=== PATIENT | male | born 1975 | race Caucasian/White ===

== ENCOUNTER 2023-10-13 12:54 | Inpatient (IN) | payer OTHER, SELFPAY ==
[2023-10-13] VITALS (17 sets, daily range): BP systolic 100–173; BP diastolic 47–117; PULSE 73–121; BMI 26.7
[2023-10-13 10:20] LABS: % Basophils 0.3 % (0-2); % Eosinophils 0.2 % (0-6); % Immature Granulocytes 0.7 % (0-0.5); % Lymphocytes 7.7 % (20.5-51.1); % Monocytes 8.1 % (1.7-9.3); Absolute Immature Granulocytes 0.1 10^3/uL (0-0.05); Absolute Neutrophils 10.6 10^3/uL (1.4-6.5); Hematocrit 34.1 % (39.0-52.0); Mean Corp Hgb Conc. 35.2 g/dL (33.0-37.0); Mean Corpuscular Volume 88.1 fL (80.0-94.0); Mean Platelet Volume 11.1 fL (7.4-10.4); Nucleated Red Blood Cells % 0 % (-); Platelet Count 183 10^3/uL (130-400); Red Blood Cell Count 3.87 10^6/uL (4.70-6.10); Red Cell Dist. Width 12.3 % (11.5-14.5); White Blood Cell Count 12.8 10^3/uL (4.8-10.8)
[2023-10-13 10:31] LABS: APTT 24.1 Sec (23.4-35.0)
--- NOTE | 2023-10-13 10:39 | ED.GENMED ---
History of Present Illness
General
Chief Complaint: Rectal Bleeding
Source: patient
Exam Limitations: none
Time Seen by Provider: 10/13/23 10:12
Nursing documentation reviewed up to this point in time: agreed with
History of Present Illness
History of Present Illness:
The patient presents to ED secondary to 8 episodes of bloody bowel movements since last night, along with dizziness when ambulating this morning. Denies fever or chills. Denies abdominal pain. Denies nausea or vomiting. Denies recent change in
medications or diet. Denies recent illness. Denies sick contact. Denies previous history of similar symptoms. Patient has never received colonoscopy. There is no family history of colon problems.
Review of Systems
Review of Systems
Allergies reviewed?: Yes
All Other Systems: ROS reviewed and negative except as documented in HPI and ROS
Constitutional: Reports no symptoms; Denies fever
Cardiac: Reports no symptoms
ABD/GI: Denies abdominal pain, vomiting, diarrhea or bloody stools
Musculoskeletal: Reports no symptoms
Skin: Reports no symptoms
Neurological: Reports dizzy
Phy Exam
Physical Exam
Physical Exam:
Physical Exam
General: mild distress, acutely ill. afebrile. pale appearing
Head: nc/at. eomi
Neck: supple. normal range of motion.
Heart: s1/s2 regular rate and rhythm, no murmur. equal radial pulses.
Lungs: no acute respiratory distress. clear bilaterally
Abdomen: normal bowel sounds. not tender. no distention. rectal exam: (DELON De Anda, at bedside) bright red blood, grossly heme positive
Neuro: alert and oriented. no focal neurological deficits
Skin: no rash
Psychiatric: well kept. interactive and cooperative
Extremities: no edema. no calf tenderness.
Course
Orders/Labs/Results
Orders:
Orders
10/13/23 Lunch
NPO
Allow oral meds: Yes
Allow clear liquids: Sips of Clears
NPO with Ice Chips: Yes
10/13/23 10:05
Cardiac Monitoring- Treatment ONCE
IV Insert/Care/Rem.- Treatment PRN
10/13/23 10:14
Type+Screen Urgent
Complete Blood Count/With Diff Urgent
Comprehensive Metabolic Panel Urgent
PTT Urgent
Prothrombin Time Urgent
10/13/23 10:22
CT Angio Abd/Pelvis w/wo IV [CT Abd/pelvis Angio W/wo Iv] Urgent
Comment:
Reason For Exam: GI Bleed
10/13/23 10:52
IV Insert/Care/Rem.- Treatment PRN
Pantoprazole 80 mg/100 ml Nss [Protonix] 80 mg in 100 ml IV NOW
Pantoprazole [Protonix IV] 80 mg IV NOW STA
10/13/23 11:53
ABO2 Urgent
BBK Wristband Number:
Associate notified that ABO2 has been ordered: [id number]
Date: 10/13/23
Time: 10:22
Lounge Car Attendant ID: [id number]
10/13/23 11:56
Admit/Transfer Patient As Directed
Co-Sign Provider:
Level of Care: Inpatient admission
Assign to:: Telemetry
Physician / Group: roderick soriano
Diagnosis: GIB
Reason for Telemetry: Other
Other Reason for Telemetry: GIB
Date to Stop Telemetry: 10/15/23
Time to Stop Telemetry: 11:00
Reason for Hospitalization: GIB
Expected length of stay greater than two midnights?: Yes
ELOS- Estimated Length of Stay in days: 3
I certify the patient meets the requirements for IP care: Yes
PRN Pain Medication Management As Directed
May give lesser potent ordered pain med per pt: Yes
preference::
Protocol:: Medication orders for pain may be administered in a
manner that supports deferring to patient preference
when the pt is:
- Requesting an ordered lesser potent pain medication.
Least to most potent pain medications are defined
as: acetaminophen < NSAID < tramadol < opioids
(morphine, oxycodone, hydromorphone).
- Requesting a lesser dose of the same medication IF
ORDERED.
- Requesting a less intrusive route of administration
if both routes are prescribed by the provider (PO <
IV).
10/13/23 11:57
Code Status As Directed
Resuscitation Status: Full Code
10/13/23 13:59
0.9% Sodium Chloride 1000 ml [Nss] 1,000 ml IV 100 mls/hr
Acetaminophen [Tylenol/Feverall] 650 mg RECTAL Q4HPRN PRN
Acetaminophen [Tylenol] 650 mg PO Q6HPRN PRN
Ondansetron Injectable [Zofran] 4 mg IV Q6HPRN PRN
10/13/23 13:59
ColoRectal Surgery Consult Routine
Consulting Provider: Jim Nuno
Was physician already notified: Yes
GASTROINTESTINAL CONSULT Routine
Consulting Provider: Tamiko Webster
Was physician already notified: Yes
Activity As Directed
Activity Level: Ambulate
INT (Intravenous Needle Therapy) As Directed
Comment: Place 2 IV catheters of the largest bore possible until stable
Orthostatic Vital Signs As Directed
Orthostatic VS Frequency: Now
Comment: then every four hours for twenty-four hours
Pneumatic Compression Sleeves As Directed
Type: Knee high
Vital Signs As Directed
Frequency: Per unit guidelines
DX Deep Vein Thrombosis Video Routine
10/13/23 20:00
Pantoprazole [Protonix IV] 40 mg IV BID
10/14/23 07:43
Basic Metabolic Panel IN AM
Complete Blood Count/No Diff IN AM
10/14/23 08:00
Multivitamin [Theragran] 1 tablet PO DAILY
10/15/23 06:00
Basic Metabolic Panel IN AM
Complete Blood Count/No Diff IN AM
10/15/23 11:00
DC Protocol for Telemetry ONCE
10/16/23 06:00
Basic Metabolic Panel IN AM
Complete Blood Count/No Diff IN AM
10/17/23 06:00
Basic Metabolic Panel IN AM
Complete Blood Count/No Diff IN AM
10/18/23 06:00
Basic Metabolic Panel IN AM
Complete Blood Count/No Diff IN AM
Abnormal Lab Results
10/13/23
10:14
WBC 12.8 H 10^3/uL
(4.8-10.8)
RBC 3.87 L 10^6/uL
(4.70-6.10)
Hgb 12.0 L g/dL
(13.0-18.0)
Hct 34.1 L %
(39.0-52.0)
MPV 11.1 H fL
(7.4-10.4)
Abs Immat Gran (auto) 0.1 H 10^3/uL
(0-0.05)
Absolute Neuts (auto) 10.6 H 10^3/uL
(1.4-6.5)
Absolute Lymphs (auto) 1.0 L 10^3/uL
(1.2-3.4)
Absolute Monos (auto) 1.0 H 10^3/uL
(0.1-0.6)
Immature Gran % 0.7 H %
(0-0.5)
Neutrophils % 83.0 H %
(42.2-75.2)
Lymphocytes % 7.7 L %
(20.5-51.1)
Glucose 133 H mg/dl
(70-99)
Calcium 8.3 L mg/dl
(8.4-10.2)
ALT 100 H U/L
(0-50)
Total Protein 5.8 L g/dl
(6.3-8.2)
10/13/23 10:14
10/13/23 10:14
Vital Signs
Initial and Last Documented VS:
Initial Vital Signs
BP
155/106
10/13/23 09:54
Last Documented Vital Signs
Temp Pulse Resp BP Pulse Ox
98.0 F 74 18 149/97 98
10/14/23 07:00 10/14/23 07:00 10/14/23 07:00 10/14/23 07:00 10/14/23 07:00
MDM/Problems Addressed
MDM/Problems Addressed:
H/H stable. GI notified via [facility].
Blood transfusion consent on the chart. Protonix gtt started.
CTA report (active bleed) discussed with (colorectal surgery) - awaiting evaluation.
Pt remains hemodynamically stable during observation in ED.
Critical care statement: A total of 40 minutes of critical care time was provided for this patient. This includes management of unstable vital signs, evaluation of the patient at bedside, reviewing the patient's pertinent medical records, discussion
with consultants, review of old EKGs and review of pertinent medical records. This time with separate from time utilized to perform the aforementioned documented procedures
*Critical Care Note
Total Time (30-74mins, 75-104mins- exclusive of procedures): 40 min
ED Attending Note
-
Portions of this chart may have been created with voice recognition software.� Occasional wrong word or��sound alike� substitutions may have occurred due to the inherent limitations of voice recognition software.
Discharge Plan
Departure
Patient Disposition: Admit
Date of Disposition: 10/13/23
Time of Disposition: 10:59
Admit to: IMU
Presentation/result/management discussed w/ accepting MD/DO: Hospitalist
Discharge Problem:
Bright red rectal bleeding
Interventions
Interventions:
*Risk Screen - Suicide Last Done: 10/13/23 10:00
*General Assessment Last Done: 10/13/23 10:00
*Neglect/Abuse Screening Last Done: 10/13/23 10:00
*ED COVID-19 Vaccine History Last Done: 10/13/23 10:05
*Nursing Disposition Last Done: 10/13/23 13:27
AH-Fbhoco-Gcmqrldtcz Assessment Last Done: 10/13/23 10:04
ED- Cardiac Assessment Last Done: 10/13/23 10:04
ED- Pulmonary Assessment Last Done: 10/13/23 10:04
Discharge Date and Time
Discharge Date/Time: 10/13/23 13:38
[2023-10-13 10:44] LABS: ALT (SGPT) 100 U/L (0-50); AST (SGOT) 46 U/L (17-59); Albumin 3.5 g/dl (3.5-5.0); Alkaline Phosphatase 56 U/L (38-126); Blood Urea Nitrogen 14 mg/dl (9-20); Calcium 8.3 mg/dl (8.4-10.2); Carbon Dioxide 23 mmol/L (22-30); Chloride 106 mmol/L (98-107); Glucose 133 mg/dl (70-99); Potassium 4.1 mmol/L (3.5-5.1); Sodium 140 mmol/L (135-145); Total Bilirubin 0.8 mg/dl (0.2-1.3); Total Protein 5.8 g/dl (6.3-8.2); eGFR > 60.00
--- NOTE | 2023-10-13 11:13 | CON.GI ---
Addendum entered and electronically signed by MANAN Belcher 10/13/23 16:24:
Pt currently for procedure with colorectal surgery. Will sign off. Call if we can be of further assistance
Addendum entered and electronically signed by MANAN Belcher 10/13/23 12:11:
Pt with + CTA in rectal bleeding. May be hemorrhoidal vs other. For colorectal evaluation.
Original Note:
Consultation
-
Date/Time Consultation Requested: 10/13/23 1100
Date/Time Consultation Performed: 10/13/23 1115
Requesting Provider: Mac Clarke MD
Performing Provider: MANAN Guy, Tamiko Webster MD
Reason for Consultation: rectal bleeding
Medical History
Chief Complaint / HPI
Chief Complaint: bright red blood per rectum
History of Present Illness:
Pt is a 47yo healthy male with onset of rectal bleeding at 10 PM 10/11. In reviewing with patient he was noted with about 8 episode or red blood since that time with about 1/2 cup with each episode. No hx prior GI bleeding. No hx colonoscopy in
past.
Pt otherwise admits to dizziness with symptoms but denies dysphagia, GERD, nausea, vomiting, abdominal pain, diarrhea, constipation, blood or black in stools. On admission hbg 12, WBC 12.8.
Social History
Tobacco: Non-Smoker
Alcohol: Occasional
Drug: None
Living: Alone
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
Family History
Family History: Other (no family hx colon ca or polyps)
Allergies / Home Medications
Allergy/AdvReac Type Severity Reaction Status Date / Time
No Known Allergies Allergy Unverified 10/13/23 10:00
�Medication �Instructions �Recorded
therapeutic multivitamin 1 tab PO DAILY Supplement 10/13/23
Review of Systems
-
History Source: Patient
Constitutional: Reports No Symptoms
EENT: Reports No Symptoms
Respiratory: Reports No Symptoms
Cardiac: Reports No Symptoms
Abdomen/GI: Reports Bloody Stools
: Reports No Symptoms
Musculoskeletal: Reports No Symptoms
Skin: Reports No Symptoms
Neurological: Reports Dizzy
Endocrine: Reports No Symptoms
Hematologic/Lymphatic: Reports Bleeding
Vital Signs
Temp Pulse Resp BP Pulse Ox
98.8 F 78 15 149/99 97
10/13/23 10:00 10/13/23 10:30 10/13/23 10:30 10/13/23 10:00 10/13/23 10:30
Physical Exam
Exam
General: Well Developed, Well Nourished and No Apparent Distress
HEENT: Normocephalic and Anicteric
Respiratory: Clear
Cardiac: Regular Rhythm
GI: Soft
Musculoskeletal: No Clubbing and No Cyanosis
Skin: Warm and Dry
Neuro: Awake, Alert and AO x 3
Psych: Calm
Results
WBC 12.8 10^3/uL (4.8-10.8) H 10/13/23 10:14
Hgb 12.0 g/dL (13.0-18.0) L 10/13/23 10:14
Hct 34.1 % (39.0-52.0) L 10/13/23 10:14
MCV 88.1 fL (80.0-94.0) 10/13/23 10:14
Plt Count 183 10^3/uL (130-400) 10/13/23 10:14
Absolute Neuts (auto) 10.6 10^3/uL (1.4-6.5) H 10/13/23 10:14
PT 14.0 Sec (11.4-14.6) 10/13/23 10:14
INR 1.10 10/13/23 10:14
APTT 24.1 Sec (23.4-35.0) 10/13/23 10:14
Sodium 140 mmol/L (135-145) 08/26/24 10:14
Potassium 4.1 mmol/L (3.5-5.1) 10/13/23 10:14
Chloride 106 mmol/L (98-107) 10/13/23 10:14
Carbon Dioxide 23 mmol/L (22-30) 10/13/23 10:14
BUN 14 mg/dl (9-20) 10/13/23 10:14
Creatinine 0.7 mg/dL (0.7-1.3) 10/13/23 10:14
Calcium 8.3 mg/dl (8.4-10.2) L 10/13/23 10:14
Total Bilirubin 0.8 mg/dl (0.2-1.3) 10/13/23 10:14
AST 46 U/L (17-59) 10/13/23 10:14
ALT 100 U/L (0-50) H 10/13/23 10:14
Alkaline Phosphatase 56 U/L (38-126) 10/13/23 10:14
Diagnostic Image Results:
10/12 CTA pending
Prior GI Procedures:
EGD: none
Colonoscopy: none
Assessment / Plan
-
Pt is a 47yo healthy male with onset of rectal bleeding at 10 PM 10/11. In reviewing with patient he was noted with about 8 episode or red blood since that time with about 1/2 cup with each episode. No hx prior GI bleeding. No hx colonoscopy in
past.
-rectal bleeding
-anemia
-mild leukocytosis
PLAN:
Etiology of rectal bleeding related to diverticular bleed with larger volume stools, colitis with mild leukocytosis vs other
plan for CTA
trend hbg and stool record
if CTA + consider angio
if CTA neg consider IP colonoscopy if persistent bleeding vs OP colonoscopy
will follow
-
-
Thank you for consultation and allowing me to participate in the patient's care. Please call the collision technician GI physician during the after hours with any questions or concerns.
[2023-10-13] MEDS: PROTONIX IV 80 MG IV (11:36)
[2023-10-13] MEDS: PROTONIX 100 IV (11:36)
--- NOTE | 2023-10-13 11:52 | HPS.HSE ---
Family Physician
-
Family Physician: * NONE
Chief Complaint
-
rectal bleeding
History of Present Illness
47-year-old male with no significant past medical history presents with rectal bleeding that began since 10 PM last night. Patient reports he has been having intermittent rectal bleeding, for at least 8-10 episodes. He denies abdominal pain,
denies nausea, denies vomiting. He has never had this problem before. Associated symptoms include lightheadedness, dizziness, and syncope. He also felt short of breath and diaphoretic this morning. His symptoms have improved. No fever.
Medical History
Past Medical History
Past Medical History: Reports None
Past Surgical History: Reports None
Social History
Tobacco: Non-smoker
Alcohol: Occasional
Drug: None
Family History
Family History: Not pertinent
Allergies / Home Medications
Allergies reflects when Allergies were last updated in [employer].
Home Medications with original date entered in [employer]
Allergy/Medication List:
Allergies
Allergy/AdvReac Type Severity Reaction Status Date / Time
No Known Allergies Allergy Unverified 10/13/23 10:00
Home Medications Table - record
�Medication �Instructions �Recorded �Confirmed
therapeutic multivitamin 1 tab PO DAILY Supplement 10/13/23 10/13/23
Review of Systems
-
A 12 point ROS was completed and negative except as noted: Yes
Physical Exam
Vital Signs
Vital Signs
Temp Pulse Resp BP Pulse Ox
98.8 F 82 15 137/79 97
10/13/23 10:00 10/13/23 11:15 10/13/23 11:15 10/13/23 11:00 10/13/23 11:15
Physical Exam
General: No Apparent Distress
HEENT: NormoCephalic, Anicteric and Moist mucous membranes
Respiratory: Clear
Cardiac: S1/S2
GI: Soft, Non Distended and Tender (Tender at the left lower quadrant)
Musculoskeletal: No Clubbing, No Cyanosis and No Edema
Skin: Warm and Dry
Neuro: Awake, Alert and Oriented
Laboratory Results
-
10/13/23 10:14
10/13/23 10:14
Laboratory Results
PT 14.0 Sec (11.4-14.6) 10/13/23 10:14
INR 1.10 10/13/23 10:14
APTT 24.1 Sec (23.4-35.0) 10/13/23 10:14
Total Bilirubin 0.8 mg/dl (0.2-1.3) 10/13/23 10:14
AST 46 U/L (17-59) 10/13/23 10:14
ALT 100 U/L (0-50) H 10/13/23 10:14
Alkaline Phosphatase 56 U/L (38-126) 10/13/23 10:14
Impression/Plan
-
HPI: 47-year-old male with no significant past medical history presents with rectal bleeding that began since 10 PM last night. Patient reports he has been having intermittent rectal bleeding, for at least 8-10 episodes. He denies abdominal pain,
denies nausea, denies vomiting. He has never had this problem before. Associated symptoms include lightheadedness, dizziness, and syncope. He also felt short of breath and diaphoretic this morning. His symptoms have improved. No fever.
#Acute rectal bleeding
Abdominal CTA shows active bleeding in the distal rectum
Appreciate GI and colorectal surgery input, plan for exam under anesthesia and flex sig more diascopy with Dr. Nuno
#Acute blood loss anemia
Trend hemoglobin, low threshold for transfusion
#Leukocytosis
Patient with temperature of 99.9
Monitor off antibiotics
#Shortness of breath
#Syncope
#Diaphoresis
Due to acute blood loss, monitor
#Fatty liver
Outpatient follow-up with GI
DVT prophylaxis�SCDs
Full code
--- NOTE | 2023-10-13 13:36 | CON.CRS ---
Consultation
-
Date/Time Consultation Requested: 10/13/2023, 12:45
Date/Time Consultation Performed: 10/13/2023, 13:05
Requesting Provider: Mac Clarke MD
Performing Provider: Jim Nuno MD
Reason for Consultation: rectal bleeding
Medical History
-
Chief Complaint: rectal bleeding
History of Present Illness:
47-year-old male presents to the emergency department complaining of rectal bleeding since last night. The patient says this is never happened to him before and is occurred every 1-2 hours since it started around 10 PM last night. He states that
the bleeding is bright red in nature and feels like he is about to have a bowel movement. He felt weak and dizzy this morning after using the bathroom and his friends called 911. He denies nausea or vomiting. He denies abdominal or rectal pain.
He has been losing weight but is intentional. His bowel movements are regular and unchanged. He has never had an instance like this occur before. He has had no prior colorectal surgery. He has never had a colonoscopy. He has no family history
of colorectal cancer.
In the ER his hemoglobin was 12.0. His white count is 12.8. His vitals are normal. CT angiogram of the abdomen and pelvis shows focal active bleeding in the distal rectum uncertain etiology based on CT possibly internal hemorrhoids. Given these
findings we have been consulted for further surgical recommendation.
Past Medical History
Past Medical History: None
Past Surgical History: None
Social History
Tobacco: Non-Smoker
Alcohol: None
Drug: None
Family History
Family History: Reviewed & Not Pertinent
Allergies / Home Medications
Allergy/AdvReac Type Severity Reaction Status Date / Time
No Known Allergies Allergy Unverified 10/13/23 10:00
�Medication �Instructions �Recorded �Confirmed �Type
therapeutic multivitamin 1 tab PO DAILY Supplement 10/13/23 10/13/23 History
Review of Systems
-
History Source: Patient
All other systems: Negative unless noted
: Bleeding
A 10 point review of systems was completed, and was negative except as per HPI.
Physical Exam
Vital Signs
Temp 98.8 F 10/13/23 10:00
Pulse 90 10/13/23 13:00
Resp Rate 13 10/13/23 13:00
Blood pressure 152/96 10/13/23 13:00
SaO2 95 10/13/23 13:00
Lab Results / Allergies
10/13/23 10:14
10/13/23 10:14
WBC 12.8 10^3/uL (4.8-10.8) H 10/13/23 10:14
Hgb 12.0 g/dL (13.0-18.0) L 10/13/23 10:14
Hct 34.1 % (39.0-52.0) L 10/13/23 10:14
Plt Count 183 10^3/uL (130-400) 10/13/23 10:14
Abs Immat Gran (auto) 0.1 10^3/uL (0-0.05) H 10/13/23 10:14
Neutrophils % 83.0 % (42.2-75.2) H 10/13/23 10:14
Allergy/AdvReac Type Severity Reaction Status Date / Time
No Known Allergies Allergy Unverified 10/13/23 10:00
Physical Exam
General: Well Developed and Well Nourished
GI: Soft, Non Tender and Non Distended
Rectal: Other (Posterior midline polyp-like tissue noted on exam. Bright red blood on fingertip. Normal tone.)
Neuro: AO x 3
Assessment / Plan
-
Assessment: 47-year-old male with bright red blood per rectum every 1-2 hours since last night with a focus of active bleeding in the distal rectum on CTA.
Plan:
-Will take to the operating room today for an exam under anesthesia and flexible sigmoidoscopy with Dr. Nuno
-Remain n.p.o.
-Discussed above plan with patient who is in agreement
-Admit to medicine
--- NOTE | 2023-10-13 13:50 | PTCARENOTE ---
10/12- Patient transferred and oriented to unit without issue. AAOX3; Skin CDI. Patient states last episode of melena was a couple of hours ago in the ER. Patient denies any current needs.
--- NOTE | 2023-10-13 16:00 | PTCARENOTE ---
10/12- Unable to obtain 1600 H&H d/t patient being off unit at procedure. Obtain next H&H as ordered.
--- NOTE | 2023-10-13 16:40 | W.IMMPOSTOP ---
Addendum entered and electronically signed by Jim Nuno MD 10/13/23 16:52:
Updated patient's next of kin, Mikey, via phone conversation.
Original Note:
Surgical Immed Post Op Note
-
Primary Surgeon: Marya Nuno MD
Assisting Surgeon: none
Pre-op Diagnosis: rectal bleeding
Post-op Diagnosis: same
Procedure Performed: 1) flexible sigmoidoscopy 2) anorectal EUA with ligation of rectal bleeder
Anesthesia Type: MAC plus local
Specimen / Cultures: none
Estimated Blood Loss: 15 cc
Complications: no immediate
Operative Findings: 1) colorectum filled with clotted blood 2) midline anterior distal rectal small actively bleeding lesion--traumatic injury most likely cause (vs Dieuleafoy's lesion vs solitary rectal ulcer)
Gelfoam anal tampon placed.
Will send back to floor.
Clears ok overnight.
--- NOTE | 2023-10-13 17:20 | PTCARENOTE ---
10/12- Patient returned from procedure AAOX3 but drowsy. He denies any current pain or needs. Skin=warm/pink/dry; +pulsesX4.
[2023-10-13] MEDS: NSS 1000 IV ×2 (18:39→19:49)
[2023-10-13] MEDS: NSS (PRESERVATIVE FREE) 10 ML IV (19:50)
[2023-10-13] MEDS: PROTONIX IV 40 MG IV (19:50)
[2023-10-13 20:50] LABS: Hemoglobin 10.4 g/dL (13.0-18.0)
[2023-10-14 02:23] LABS: Hematocrit 27.8 % (39.0-52.0); Hemoglobin 10.1 g/dL (13.0-18.0)
[2023-10-14 03:30] VITALS: BP 127/79; BP 133/95; BP 139/91; PULSE 103; PULSE 72; PULSE 85
[2023-10-14 07:00] VITALS: BP 133/95; BP 149/97; BP 158/96; PULSE 110; PULSE 74; PULSE 86
[2023-10-14] MEDS: PROTONIX IV 40 MG IV (07:22)
[2023-10-14] MEDS: THERAGRAN 1 TABLET PO (07:23)
[2023-10-14] MEDS: NSS (PRESERVATIVE FREE) 10 ML IV (07:23)
[2023-10-14] MEDS: NSS 1000 IV (07:23)
[2023-10-14 08:58] LABS: Hematocrit 29.2 % (39.0-52.0); Hemoglobin 10.3 g/dL (13.0-18.0); Mean Corp Hgb Conc. 35.3 g/dL (33.0-37.0); Mean Corpuscular Hgb 31.4 pg (27.0-31.0); Mean Platelet Volume 11.7 fL (7.4-10.4); Platelet Count 203 10^3/uL (130-400); Red Blood Cell Count 3.28 10^6/uL (4.70-6.10); Red Cell Dist. Width 12.4 % (11.5-14.5); White Blood Cell Count 17.4 10^3/uL (4.8-10.8)
--- NOTE | 2023-10-14 09:00 | W.PN.HOSP.TC ---
Today's Communication/Plan
-
see bold
Assessment / Plan
Assessment / Plan
HPI: 47-year-old male with no significant past medical history presents with rectal bleeding that began since 10 PM last night. Patient reports he has been having intermittent rectal bleeding, for at least 8-10 episodes. He denies abdominal pain,
denies nausea, denies vomiting. He has never had this problem before. Associated symptoms include lightheadedness, dizziness, and syncope. He also felt short of breath and diaphoretic this morning. His symptoms have improved. No fever.
#Acute rectal bleeding
10/12 Abdominal CTA shows active bleeding in the distal rectum
Appreciate GI and colorectal surgery input, s/p flex sig & anorectal EUA w/ ligation of rectal bleeder with Dr. Nuno
CRS recommends sitz bath twice a day for a week, daily fiber
Monitor today
#Acute blood loss anemia
Trend hemoglobin, low threshold for transfusion
#Leukocytosis
Patient with temperature of 99.9
Monitor off antibiotics
#Shortness of breath
#Syncope
#Diaphoresis
Due to acute blood loss, monitor
#Fatty liver
Outpatient follow-up with GI
DVT prophylaxis�SCDs
Full code
Total time spent to see the patient on the floor, examine the patient, review data and lab results, discuss treatment plan with patient, nursing staff around 39 minutes.
Physical Exam
General: No acute distress
HEENT: Normocephalic, Atraumatic, EOMI, MMM
Respiratory: Clear to Auscultation bilaterally
Cardiac: Normal S1/S2, Regular Rate and Rhythm
GI: Soft, Nontender, Nondistended, Normal Bowel Sounds
Extremities: No Clubbing, Cyanosis, or Edema
Neuro: Nonfocal/Grossly Intact
Psych: Calm, Cooperative
Derm: No Visible lesions
Anticipated Discharge: Within 24 hours
Subjective/Interval History
-
Date of Service: October 14, 2023
Rectal bleeding resolved. No abdominal pain. No fever, no vomiting.
Objective Data
-
Labs:
Laboratory Results
10/14/23 10/14/23
02:10 07:43
WBC 17.4 H
Hgb 10.1 L 10.3 L
Hct 27.8 L 29.2 L
Plt Count 203
Sodium Pending
Potassium Pending
Chloride Pending
Carbon Dioxide Pending
BUN Pending
Creatinine Pending
Glucose Pending
Calcium Pending
Vital Signs:
Vital Signs
Temp Pulse Resp BP Pulse Ox
98.0 F 74 18 149/97 98
10/14/23 07:00 10/14/23 07:00 10/14/23 07:00 10/14/23 07:00 10/14/23 07:00
I&O
10/13/23 10/14/23 10/15/23
06:59 06:59 06:59
Intake Total 1660 / 1660
Output Total 1100 / 1100
Balance 560 / 560
[2023-10-14 10:05] LABS: Blood Urea Nitrogen 13 mg/dl (9-20); Calcium 8.8 mg/dl (8.4-10.2); Carbon Dioxide 27 mmol/L (22-30); Chloride 103 mmol/L (98-107); Estimated Creatinine Clearance > 125 ml/min; Glucose 101 mg/dl (70-99); Potassium 4.6 mmol/L (3.5-5.1); Sodium 138 mmol/L (135-145); eGFR > 60.00
[2023-10-14 11:00] VITALS: BP 143/101
--- NOTE | 2023-10-14 11:10 | W.PN.CRS1 ---
Today's Communication / Plan
-
trend wbc
wound care
Assessment/Plan
-
POD#1
1. WBC 17.4 from 12.8. Afebrile.
2. Sitz baths twice a day for a week.
3. Daily fiber supplement.
4. Would recommend watching another day as WBC is elevated.
5. Gelfoam anal tampon in place- will come out with bowel movement
Subjective Data
Subjective Data
Date of Service: October 14, 2023
Patient states he has no abdominal pain. He has mild rectal pain. He is hungry. He has no complaints.
Objective Data
-
Vital Signs
Temp Pulse Resp BP Pulse Ox
98.0 F 74 18 149/97 98
10/14/23 07:00 10/14/23 07:00 10/14/23 07:00 10/14/23 07:00 10/14/23 07:00
Intake & Output
10/13/23 10/14/23 10/15/23
06:59 06:59 06:59
Intake Total 1660 / 1660
Output Total 1100 / 1100
Balance 560 / 560
Intake:
Oral fluids 960 / 960
IV fluids (Total) 700 / 700
Output:
Urine, Voided 1100 / 1100
Other:
Number of unmeasured liquid
stools
Rectum 2
Lab Results
10/14/23 07:43
10/14/23 07:43
Physical Exam
-
General: No Acute Distress and AOx3
Abdomen: Soft, Non Distended and Non Tender
Skin: Warm and Dry
--- NOTE | 2023-10-14 11:12 | CM ---
CM reviewed chart. Pt presented from home [place] c/o rectal bleeding now s/p flex sig and anorectal EUA with ligation, GI following-final recs pending.
Spoke with pt, explained role and discussed anticipated dc plan/options. Pt is from home, IAMB, IADLs. Currently uninsured- [facility] aware and pt is listed as MA pending. Should pt need medications as dc, CM recs MD refer to [facility] $4 generic med list
and/or pt can use [employer] (online or via laura). CM rec's hard scripts, or if preferred by pt [facility] has been confirmed. Pt does not follow with a PCP OP. Referred to [email or web address] to obtain a list of free clinics in pts area. Pt has no skilled
needs noted at this time. Pt has no skilled needs noted at this time. Pt [place] arrange [place] to [place]
CM will continue to follow to ensure a safe and timely discharge.
[2023-10-14] MEDS: METAMUCIL, KONSYL 1 PACKET PO (11:35)
[2023-10-14 15:00] VITALS: BP 151/88
[2023-10-14 19:30] VITALS: BP 136/78
--- NOTE | 2023-10-14 20:30 | PTCARENOTE ---
Pt refused sitz bath, says he will try tomorrow
[2023-10-14] MEDS: TYLENOL 650 MG PO (20:48)
[2023-10-14 22:30] VITALS: BP 109/67
[2023-10-14] MEDS: MELATONIN 5 MG PO (22:32)
[2023-10-15 03:30] VITALS: BP 106/58
[2023-10-15 07:17] LABS: Blood Urea Nitrogen 13 mg/dl (9-20); Calcium 8.7 mg/dl (8.4-10.2); Carbon Dioxide 30 mmol/L (22-30); Chloride 106 mmol/L (98-107); Estimated Creatinine Clearance 111 ml/min; Glucose 107 mg/dl (70-99); Potassium 4.6 mmol/L (3.5-5.1); Sodium 141 mmol/L (135-145); eGFR > 60.00
[2023-10-15 07:23] LABS: Procalcitonin < 0.05 ng/ml (0.0-0.25)
[2023-10-15 07:36] LABS: % Basophils 0.7 % (0-2); % Eosinophils 2.1 % (0-6); % Immature Granulocytes 1.6 % (0-0.5); % Lymphocytes 25.4 % (20.5-51.1); % Monocytes 8.8 % (1.7-9.3); % Neutrophils 61.4 % (42.2-75.2); Absolute Basophils 0.1 10^3/uL (0-0.2); Absolute Eosinophils 0.2 10^3/uL (0-0.7); Absolute Immature Granulocytes 0.1 10^3/uL (0-0.05); Absolute Monocytes 0.7 10^3/uL (0.1-0.6); Absolute Neutrophils 4.7 10^3/uL (1.4-6.5); Hematocrit 25.5 % (39.0-52.0); Hemoglobin 8.8 g/dL (13.0-18.0); Mean Corp Hgb Conc. 34.5 g/dL (33.0-37.0); Mean Corpuscular Hgb 30.9 pg (27.0-31.0); Mean Corpuscular Volume 89.5 fL (80.0-94.0); Nucleated Red Blood Cells % 0 % (-); Red Blood Cell Count 2.85 10^6/uL (4.70-6.10); Red Cell Dist. Width 12.1 % (11.5-14.5); White Blood Cell Count 7.7 10^3/uL (4.8-10.8)
[2023-10-15 07:45] VITALS: BP 141/60
[2023-10-15 08:00] VITALS: BP 143/84; BP 148/88; PULSE 67; PULSE 78
--- NOTE | 2023-10-15 08:00 | PTCARENOTE ---
Attempted orthostatic BP, pt became lightheaded after sitting on side of bed. Able to obtain lying and sitting BP, no drop noted (see VS)
[2023-10-15] MEDS: METAMUCIL, KONSYL 1 PACKET PO (08:45)
[2023-10-15] MEDS: THERAGRAN 1 TABLET PO (08:45)
--- NOTE | 2023-10-15 09:00 | W.PN.CRS1 ---
Today's Communication / Plan
-
as below
Assessment/Plan
-
47-year-old male with no PMH who presents with significant rectal bleeding, CTA positive for active bleeding in the distal rectum
POD 1 s/p flex sig, EUA with ligation of rectal bleeder, likely traumatic injury versus dieulafoy's lesion versus SRUS
AFVSS
WBC 7.7 from 17.4, Hb 8.8 from 10.3
� Continue regular diet
� Continue pain control as needed, recommend Tylenol/Motrin
� Hold DVT PPx; drop in hemoglobin likely equilibration as he has had no further bleeding
� OOB/IS
� Appreciate hospitalist
Dispo�okay for discharge from colorectal standpoint if medically clear; follow-up with Dr. Nuno in 2 to 4 weeks
Subjective Data
Subjective Data
Date of Service: October 15, 2023
No further bleeding overnight. No BMs overnight.
No N/V, tolerating diet
Denies any pain.
Objective Data
-
Vital Signs
Temp Pulse Resp BP Pulse Ox
98.7 F 69 19 141/60 97
10/15/23 07:45 10/15/23 07:45 10/15/23 07:45 10/15/23 07:45 10/15/23 07:45
Intake & Output
10/14/23 10/15/23 10/16/23
06:59 06:59 06:59
Intake Total 1660 / 1660 580 / 580
Output Total 1100 / 1100 450 / 450
Balance 560 / 560 130 / 130
Intake:
Oral fluids 960 / 960 580 / 580
IV fluids (Total) 700 / 700
Output:
Urine, Voided 1100 / 1100 450 / 450
Other:
Number of approximated MODERATE 3
amounts of urine
Number of unmeasured liquid
stools
Rectum 2
Lab Results
10/15/23 06:33
10/15/23 06:33
Physical Exam
-
General: No Acute Distress and AOx3
HEENT: Grossly Normal
Abdomen: Soft, Non Distended and Non Tender
Rectal: No Mass and No Gross Bleeding
Skin: Warm and Dry
--- NOTE | 2023-10-15 09:14 | W.PN.HOSP.TC ---
Today's Communication/Plan
-
Trend Hgb
Assessment / Plan
Assessment / Plan
HPI: 47-year-old male with no significant past medical history presents with rectal bleeding that began since 10 PM last night. Patient reports he has been having intermittent rectal bleeding, for at least 8-10 episodes. He denies abdominal pain,
denies nausea, denies vomiting. He has never had this problem before. Associated symptoms include lightheadedness, dizziness, and syncope. He also felt short of breath and diaphoretic this morning. His symptoms have improved. No fever.
#Acute rectal bleeding
10/12 Abdominal CTA shows active bleeding in the distal rectum
Appreciate GI and colorectal surgery input, s/p flex sig & anorectal EUA w/ ligation of rectal bleeder with Dr. Nuno10/12
CRS recommends sitz bath twice a day for a week, daily fiber
Monitor today
#Acute blood loss anemia
Hgb 8.8, was 10.3, was 12 upon admission
Trend hemoglobin, low threshold for transfusion
#Leukocytosis
Afebrile, resolved
Monitor off antibiotics
#Shortness of breath
#Syncope
#Diaphoresis
Due to acute blood loss, monitor
#Fatty liver
Outpatient follow-up with GI
DVT prophylaxis�SCDs
Full code
Total time spent to see the patient on the floor, examine the patient, review data and lab results, discuss treatment plan with patient, nursing staff around 38 minutes.
Physical Exam
General: No acute distress
HEENT: Normocephalic, Atraumatic, EOMI, MMM
Respiratory: Clear to Auscultation bilaterally
Cardiac: Normal S1/S2, Regular Rate and Rhythm
GI: Soft, Nontender, Nondistended, Normal Bowel Sounds
Extremities: No Clubbing, Cyanosis, or Edema
Neuro: Nonfocal/Grossly Intact
Psych: Calm, Cooperative
Derm: No Visible lesions
Anticipated Discharge: Within 24 hours
Subjective/Interval History
-
Date of Service: October 15, 2023
No BM. No fever, no vomiting. +LH w/ standing.
Objective Data
-
Labs:
Laboratory Results
10/15/23
06:33
WBC 7.7
Hgb 8.8 L
Hct 25.5 L
Plt Count
Sodium 141
Potassium 4.6
Chloride 106
Carbon Dioxide 30
BUN 13
Creatinine 0.9
Glucose 107 H
Calcium 8.7
Vital Signs:
Vital Signs
Temp Pulse Resp BP Pulse Ox
98.7 F 69 19 141/60 97
10/15/23 07:45 10/15/23 07:45 10/15/23 07:45 10/15/23 07:45 10/15/23 07:45
I&O
10/14/23 10/15/23 10/16/23
06:59 06:59 06:59
Intake Total 1660 / 1660 580 / 580
Output Total 1100 / 1100 450 / 450
Balance 560 / 560 130 / 130
--- NOTE | 2023-10-15 10:46 | CM ---
Chart reviewed and patient to return to home when stable, patient states he has a friend that will pick him up, patient was provided with information, on [facility], [facility], and [facility] for prescriptions.
Plan; Home when stable, friend to transport.
[2023-10-15 15:10] VITALS: BP 131/76
[2023-10-15 19:42] LABS: % Basophils 0.7 % (0-2); % Eosinophils 2.1 % (0-6); % Immature Granulocytes 1.4 % (0-0.5); % Lymphocytes 21.8 % (20.5-51.1); % Monocytes 8.4 % (1.7-9.3); % Neutrophils 65.6 % (42.2-75.2); Absolute Basophils 0.1 10^3/uL (0-0.2); Absolute Eosinophils 0.2 10^3/uL (0-0.7); Absolute Immature Granulocytes 0.2 10^3/uL (0-0.05); Absolute Lymphocytes 2.4 10^3/uL (1.2-3.4); Absolute Monocytes 0.9 10^3/uL (0.1-0.6); Absolute Neutrophils 7.3 10^3/uL (1.4-6.5); Hematocrit 26.6 % (39.0-52.0); Hemoglobin 9.4 g/dL (13.0-18.0); Mean Corp Hgb Conc. 35.3 g/dL (33.0-37.0); Mean Corpuscular Volume 90.5 fL (80.0-94.0); Mean Platelet Volume 10.9 fL (7.4-10.4); Nucleated Red Blood Cells % 0.2 % (-); Platelet Count 187 10^3/uL (130-400); Red Blood Cell Count 2.94 10^6/uL (4.70-6.10); Red Cell Dist. Width 12.1 % (11.5-14.5); White Blood Cell Count 11.1 10^3/uL (4.8-10.8)
--- NOTE | 2023-10-15 21:00 | PTCARENOTE ---
Pt still feeling slightly dizzy when OOB but reports feeling much stronger since orthostatic episode earlier today. Pt is AAOx3, sitz bath not given during shift as pt states 'I'm going to go to bed now' and pt remains in bed.
[2023-10-15 23:27] VITALS: BP 132/80
[2023-10-16 07:57] LABS: Hemoglobin 8.9 g/dL (13.0-18.0); Mean Corp Hgb Conc. 34.2 g/dL (33.0-37.0); Mean Corpuscular Hgb 30.6 pg (27.0-31.0); Mean Corpuscular Volume 89.3 fL (80.0-94.0); Mean Platelet Volume 11.5 fL (7.4-10.4); Platelet Count 186 10^3/uL (130-400); Red Blood Cell Count 2.91 10^6/uL (4.70-6.10); Red Cell Dist. Width 12.1 % (11.5-14.5); White Blood Cell Count 9.7 10^3/uL (4.8-10.8)
[2023-10-16 07:58] VITALS: BP 133/89
--- NOTE | 2023-10-16 08:10 | W.PN.HOSP.TC ---
Today's Communication/Plan
-
Discharge today
Assessment / Plan
Assessment / Plan
HPI: 47-year-old male with no significant past medical history presents with rectal bleeding that began since 10 PM last night. Patient reports he has been having intermittent rectal bleeding, for at least 8-10 episodes. He denies abdominal pain,
denies nausea, denies vomiting. He has never had this problem before. Associated symptoms include lightheadedness, dizziness, and syncope. He also felt short of breath and diaphoretic this morning. His symptoms have improved. No fever.
#Acute rectal bleeding
10/12 Abdominal CTA shows active bleeding in the distal rectum
Appreciate GI and colorectal surgery input, s/p flex sig & anorectal EUA w/ ligation of rectal bleeder with Dr. Nuno10/12
CRS recommends sitz bath twice a day for a week, daily fiber
Medically stable for discharge today, follow-up with colorectal surgery in the office in 2 weeks
#Acute blood loss anemia
Hgb 8.9, was 8.8, was 10.3, was 12 upon admission
Discharged on ferrous sulfate and MiraLAX
#Leukocytosis
Afebrile, resolved
Monitor off antibiotics
#Shortness of breath
#Syncope
#Diaphoresis
Due to acute blood loss, monitor
#Fatty liver
Outpatient follow-up with GI
DVT prophylaxis�SCDs
Full code
Physical Exam
General: No acute distress
HEENT: Normocephalic, Atraumatic, EOMI, MMM
Respiratory: Clear to Auscultation bilaterally
Cardiac: Normal S1/S2, Regular Rate and Rhythm
GI: Soft, Nontender, Nondistended, Normal Bowel Sounds
Extremities: No Clubbing, Cyanosis, or Edema
Neuro: Nonfocal/Grossly Intact
Psych: Calm, Cooperative
Derm: No Visible lesions
Anticipated Discharge: Today
Subjective/Interval History
-
Date of Service: October 16, 2023
Patient had a bowel movement, had residual old blood. He feels much better. His lightheadedness with standing has improved dramatically. No fever, no vomiting.
Objective Data
-
Labs:
Laboratory Results
10/16/23
06:54
WBC 9.7
Hgb 8.9 L
Hct 26.0 L
Plt Count 186
Vital Signs:
Vital Signs
Temp Pulse Resp BP Pulse Ox
98.3 F 67 18 133/89 98
10/16/23 07:58 10/16/23 07:58 10/16/23 07:58 10/16/23 07:58 10/16/23 07:58
I&O
10/15/23 10/16/23 10/17/23
06:59 06:59 06:59
Intake Total 580 / 580 840 / 840
Output Total 450 / 450 800 / 800
Balance 130 / 130 40 / 40
[2023-10-16] MEDS: METAMUCIL, KONSYL 1 PACKET PO (08:21)
[2023-10-16] MEDS: THERAGRAN 1 TABLET PO (08:21)
--- NOTE | 2023-10-16 09:16 | CM ---
branch office manager reviewed patient's chart and plan is to home when stable.
Plan; Home when stable.
--- NOTE | 2023-10-16 10:03 | W.PN.CRS1 ---
Today's Communication / Plan
-
OKay for d/c when cleared by hospitalist
F/u in 2 weeks
Assessment/Plan
-
47-year-old male with no PMH who presents with significant rectal bleeding, CTA positive for active bleeding in the distal rectum
POD 2 s/p flex sig, EUA with ligation of rectal bleeder, likely traumatic injury versus dieulafoy's lesion versus SRUS
AFVSS
WBC 9.7, Hg 8.9 from 9.4
� Continue regular diet
� Continue pain control as needed, recommend Tylenol/Motrin
� Hold DVT PPx; drop in hemoglobin likely equilibration as he has had no further bleeding
� OOB/IS
� Appreciate hospitalist
- Dispo�okay for discharge from colorectal standpoint if medically clear; follow-up with Dr. Nuno in 2 to 4 weeks
Subjective Data
Subjective Data
Date of Service: October 16, 2023
Patient states he feels much better. He has no bleeding. He had a bowel movement yesterday with no bleeding. He denies nausea or vomiting. He is tolerating a diet.
Objective Data
-
Vital Signs
Temp Pulse Resp BP Pulse Ox
98.3 F 67 18 133/89 98
10/16/23 07:58 10/16/23 07:58 10/16/23 07:58 10/16/23 07:58 10/16/23 07:58
Intake & Output
10/15/23 10/16/23 10/17/23
06:59 06:59 06:59
Intake Total 580 / 580 840 / 840
Output Total 450 / 450 800 / 800
Balance 130 / 130 40 / 40
Intake:
Oral fluids 580 / 580 840 / 840
Output:
Urine, Voided 450 / 450 800 / 800
Other:
Number of approximated MODERATE 3 2
amounts of urine
Lab Results
10/16/23 06:54
10/15/23 06:33
Physical Exam
-
General: No Acute Distress and AOx3
Abdomen: Soft, Non Distended and Non Tender
Skin: Warm and Dry
== END 2023-10-16 11:27 | disposition home or self-care (01) | DRG 393 ==
LOC: 4 WEST ACU 12:54
PROVIDERS: Emergency Medicine; Surgery; ADMITTING PHYSICIAN Family Medicine; CONSULT PHYSICIAN Internal Medicine; CONSULT PHYSICIAN Surgery; EMERGENCY PHYSICIAN Emergency Medicine
PROC: 0W3P8ZZ Control Bleeding in Gastrointestinal Tract, Via Natural or Artificial Opening Endoscopic (ICD-10-PCS; 2023-10-13)
DX: S36.60XA Unspecified injury of rectum, initial encounter (principal); K57.31 Diverticulosis of large intestine without perforation or abscess with bleeding; K63.81 Dieulafoy lesion of intestine; D62 Acute posthemorrhagic anemia; K62.6 Ulcer of anus and rectum; K62.5 Hemorrhage of anus and rectum; K76.0 Fatty (change of) liver, not elsewhere classified; D72.829 Elevated white blood cell count, unspecified; K52.9 Noninfective gastroenteritis and colitis, unspecified
CPT/HCPCS: 74174; 80048; 80053; 84145; 85014; 85018; 85025; 85027; 85610; 85730; 86850; 86900; 86901; 96374; 99291; Q9967